=== PATIENT | male | born 1980 | race Hispanic/Latino ===

== ENCOUNTER 2020-05-30 08:18 | Outpatient (CLI) | payer OTHER ==
--- NOTE | 2020-05-30 11:10 | CT ---
CT ABDOMEN AND PELVIS WITH AND WITHOUT IV CONTRAST: DATE: 05/30/2020. PROVIDED CLINICAL HISTORY: Hematuria. FINDINGS: No comparisons. The visualized lung bases are free of significant opacity. The liver, spleen, pancreas, kidneys, and adrenal glands demonstrate a normal CT appearance. There i s no evidence for urinary tract calculi or hydronephrosis. No evidence for renal mass. The renal co llecting systems and opacified ureters demonstrate no evidence for filling defect. The urinary bladd er appears unremarkable. There is no bowel dilatation, inflammatory fat stranding, free fluid, or lymph node enlargement appar ent. The osseous structures demonstrate no concerning lytic or blastic lesions. IMPRESSION: An etiology for the patient's hematuria is not evident on this examination. POS: WILDER
[2020-05-30] MEDS ORDERED: Iopamidol-370 76% 500 ML 1 ML ONE (13:42)
== END 2020-05-30 08:19 | disposition home or self-care (01) ==
LOC: BICCT 08:18
PROVIDERS: ATTEND Family Medicine
DX: R31.9 Hematuria, unspecified (principal)
CPT/HCPCS: 74178; Q9967

== ENCOUNTER 2021-12-04 15:54 | Outpatient (CLI) | payer OTHER | END 2021-12-04 15:55 | disposition home or self-care (01) | LOC: BICCT 15:54 | PROVIDERS: ATTEND Nurse Practitioner Family | DX: M54.16 Radiculopathy, lumbar region (principal); R20.2 Paresthesia of skin; R53.83 Other fatigue; M43.07 Spondylolysis, lumbosacral region | CPT/HCPCS: 72131 ==